=== PATIENT | female | born 2000 | race Caucasian/White ===

== ENCOUNTER 2022-08-23 07:20 | Emergency (ER) | payer OTHER ==
[2022-08-23 07:42] VITALS: BP 101/72; PULSE 93; RESP 18; TEMP 98; BMI 23.0
== END 2022-08-23 11:26 | disposition left against medical advice (07) ==
LOC: JER 07:20
DX: S99.921A Unspecified injury of right foot, initial encounter (principal); S09.90XA Unspecified injury of head, initial encounter; V49.40XA Driver injured in collision with unspecified motor vehicles in traffic accident, initial encounter
CPT/HCPCS: 73630-TC-RT-FY; 99283-25